=== PATIENT | female | born 1965 | race Caucasian/White ===

== ENCOUNTER → 2021-10-18 | Outpatient (CLI) | payer MEDICARE, OTHER ==
[~2021-10-18] MED LIST: ALBUIS IH; AMIT25 PO; CITA20; CYCL10 PO; DIAZ5 PO; HYDCHL25 PO; LISHYD1012 PO; LISINOPRIL-? DOSE; METPRE4DP PO; NAPR500 PO; Naprosyn500 MG PO; Norco 5-325 Ta1 EACH PO; Zofran Odt4 MG SL
== END ==
LOC: LAB SHORT 17:05
DX: N39.0 Urinary tract infection, site not specified (principal)
CPT/HCPCS: 87086

== ENCOUNTER 2022-08-05 17:58 | Emergency (ER) | payer MEDICARE, OTHER ==
[~2022-08-05] VITALS: Ht 160 cm; Wt 89.8 kg
[2022-08-05] MEDS ORDERED: PRED20 PO (19:57)
== END 2022-08-05 20:08 | disposition home or self-care (01) ==
LOC: ER 17:58
DX: L25.9 Unspecified contact dermatitis, unspecified cause (principal); J45.909 Unspecified asthma, uncomplicated; Z91.02 Food additives allergy status; Z91.018 Allergy to other foods; Z79.899 Other long term (current) drug therapy; Z87.891 Personal history of nicotine dependence
CPT/HCPCS: J7512

== ENCOUNTER → 2022-08-15 | Outpatient (CLI) | payer MEDICARE, OTHER ==
[~2022-08-15] MED LIST changes: +HYDPAM25 PO; -LISHYD1012 PO; +PRED20 PO; +ZESTORETIC 20-1 EACH PO; +ZYRTEC10 M1 PO
[2022-08-19 15:08] LABS: HPV 16 Negative (Negative); HPV 18 Negative (Negative); HPV OTHER HR TYPES Negative (Negative)
== END ==
LOC: RAD SHORT 09:30
PROVIDERS: Family Medicine
DX: Z01.419 Encounter for gynecological examination (general) (routine) without abnormal findings (principal)
CPT/HCPCS: 87624; G0145

== ENCOUNTER 2022-09-14 08:34 | Day surgery (SDC) | payer MEDICARE, OTHER ==
[~2022-09-14] VITALS: Ht 157.5 cm; Wt 91.1 kg
[2022-09-14] MEDS ORDERED: FLUT.05NI (08:58)
[2022-09-14] MEDS ORDERED: ASPI81CH PO (12:07)
[2022-09-14] MEDS ORDERED: PROM25 PO (12:08)
[2022-09-14] MEDS ORDERED: ROXICODONE5 MG PO (12:08)
[2022-09-14] MEDS ORDERED: BACTRIM DS TAB1 EAC6 PO (12:09)
--- NOTE | 2022-09-14 16:22 | NUR ---
SHIFT SUMMARY/NOTE: POD 0 LAP AWILDA PATIENT IS A&OX4. VS ARE WNL AND IS ON RA. PATIENT REPORTS A 6/10 PAIN AT THIS TIME BUT WAS JUST GIVEN 1 NORCO PO WELL IV TORADOL. SHE HAS 3 STERI STRIPS ON HER ABD THAT ARE C/D/I WITH HER BELLY BUTTON LAP SITE WITH GAUZE + TEGADERM. SHE IS TOLERATING SMALL AMOUNTS OF PO INTAKE. SHE IS LAYING IN BED WITH CALL LIGHT IN REACH. FAMILY AT BEDSIDE.
--- NOTE | 2022-09-14 16:29 | NUR ---
SHIFT SUMMARY: POD 0 LEFT TOTAL KNEE PATIENT IS A&OX4. VS ARE WNL AND IS ON RA. PATIENT DENIES PAIN BUT HAS BEEN GIVEN HER SCHEDULED TYLENOL AND TORADOL. HER LEFT KNEE HAS NAKUL WRAP AND IS C/D/I. DENIES NUMBNESS OR TINGLING IN ALL EXTREMITIES. PATIENT CAN MOVE FINGERS AND TOES WHEN ASKED. SHE IS TOLERATING PO INTAKE. CALLS APPROPRIATELY. CALL LIGHT WITHIN REACH. THE PLAN IS TO WORK WITH PT/OT TOMORROW AND TO HAVE PAIN MANAGED.
[2022-09-15 05:11] LABS: BASOPHILS ABSOLUTE AUTO 0.03 K/mm3 (0.00-0.23); BASOPHILS PERCENT AUTO 0 % (0-2); EOSINOPHILS ABSOLUTE AUTO 0.03 K/mm3 (0.00-0.68); EOSINOPHILS PERCENT AUTO 0 % (0-6); Hematocrit 34.9 % (33.0-51.0); IMMATURE GRAN ABSOLUTE AUTO 0.09 K/mm3 (0.00-0.10); IMMATURE GRAN PERCENT AUTO 1 % (0-1); LYMPHOCYTES ABSOLUTE AUTO 2.47 K/mm3 (0.84-5.20); LYMPHOCYTES PERCENT AUTO 14 % (21-46); MONOCYTES PERCENT AUTO 9 % (4-13); Mean Corpuscular HGB 31.1 pg (26.0-34.0); Mean Corpuscular HGB Conc 34.4 g/dL (31.5-36.5); Mean Corpuscular Volume 90 fL (80-100); NEUTROPHILS ABSOLUTE AUTO 14.11 K/mm3 (1.96-9.15); NEUTROPHILS PERCENT AUTO 77 % (41-73); Platelet Count 276 K/mm3 (150-400); RDW Coefficient Variation 13.8 % (11.7-14.2); RDW Standard Deviation 46.3 fL (35.1-46.3); Red Blood Cell Count 3.86 M/mm3 (3.80-5.20); White Blood Cell Count 18.33 K/mm3 (4.00-11.30)
--- NOTE | 2022-09-15 05:33 | NUR ---
DIRECTOR REACTOR PROJECTS SUMMARY PT IS POD 0 FOR L TKA. PT HAS AMBULATED MULTIPLE TIMES TONIGHT WITH A STANDBY ASSIST AND FWW TO THE END OF THE MILLS AND BACK. PAIN HAS BEEN MANAGED WITH SCHEDULED TORADOL. PT DENIES N/T AND IS ABLE TO WIGGLE TOES. TOLERATING PO AND HAS VOIDED SINCE SURGERY. VSS, WILL CONTINUE TO MONITOR.
[2022-09-15 05:51] LABS: Bun/Creatinine Ratio 21.7 (12.0-20.0); Calcium, Blood 9.1 mg/dL (8.5-10.1); Creatinine, Blood 0.78 mg/dL (0.40-1.00); Potassium, Blood 3.5 mmol/L (3.5-5.5)
--- NOTE | 2022-09-15 12:24 | NUR ---
DISCHARGE SUMMARY ASSISTED SURGEON WITH DRESSING CHANGE NEAR START OF SHIFT, BULKY SURGICAL DRESSING REMOVED, SITE CLEANED WITH H2O2 AND NEW AQUACELL DRESSING PLACED. PT HAD COMPRESSIONS STALKINGS AND POLAR PACK IN PLACE, PAIN WAS MINIMAL WITH ORAL PAIN MEDICATIONS PROVIDED WHILE SHE WAS WORKING WITH PHYSICAL THERAPY. PT CLEARED TO GO HOME BY PHYSICAL THERAPY AND DISCHARGE INSTRUCTIONS WERE DISCUSSED WITH HER INCLUDING SURGICAL SITE CARE, PERSONAL HYGIENE AND DRESSING CHANGES, FOLLOW UP APPOINTMENTS, MEDICATION CHANGES, MOBILITY, OUTPATIENT F/U THERAPY, AND CONTACT INFORMATION SHOULD ANY ADDITIONAL QUESTIONS COME UP AFTER DISCHARGE. HER IV WAS INFILTRATED NEAR END OF NOC SHIFT AND WAS ALREADY REMOVED PRIOR TO ASSUMPTION OF CARE BY THIS RN. SHE IS WAITING ON HER RIDE TO GO HOME AND WE WILL CTM HER UNTIL THAT TIME.
--- NOTE | 2022-09-15 14:51 | NUR ---
DISCHARGE VITALS TAKEN AND ARE NORMAL FOR THE PATIENT, MEDICTED PER EMAR PRIOR TO DEPARTURE, ESCORTED OUT VIA WC WITH ALL PERSONAL POSSESSIONS TO HER SONS CARE TO GO HOME.
== END 2022-09-15 14:34 | disposition home or self-care (01) ==
LOC: ORSCMMR 08:34 → ORD 10:00 → ORSCMMR 10:30 → SURS 14:38 → ORSCMMR 09-15 14:34
PROVIDERS: Orthopaedic Surgery
PROC: 0SRD0J9 Replacement of Left Knee Joint with Synthetic Substitute, Cemented, Open Approach (ICD-10-PCS; principal; 2022-09-14 10:30)
DX: M17.12 Unilateral primary osteoarthritis, left knee (principal)
CPT/HCPCS: 36415; 73560-LT; 80048; 83735; 85025; 97110; 97116; 97162; 97530; A9270; C1713; C1776; J0171; J0690; J0735; J1100; J1885; J2250; J2370; J2405; J2704; J2765; J2795; J3010; J7120

== ENCOUNTER 2023-04-07 17:44 | Emergency (ER) | payer MEDICARE, OTHER ==
[~2023-04-07] VITALS: Ht 160 cm; Wt 90.7 kg
[~2023-04-07 17:44] MED LIST changes: +ASPI81CH PO; +BACTRIM DS TAB1 EAC6 PO; +FLUT.05NI; +PROM25 PO; +ROXICODONE5 MG PO
[2023-04-07 18:14] VITALS: BP 157/94
== END 2023-04-07 19:36 | disposition home or self-care (01) ==
LOC: ER 17:44
DX: M79.675 Pain in left toe(s) (principal); Z91.018 Allergy to other foods; Z87.891 Personal history of nicotine dependence
CPT/HCPCS: 73630; 99283-25

== ENCOUNTER → 2025-05-14 | Outpatient (CLI) | payer MEDICARE, OTHER ==
[2025-05-15 14:06] LABS: Stool Occult Bld Immuno 1 Negative (NEGATIVE)
== END | disposition home or self-care (01) ==
LOC: LAB 14:26 → LAB SHORT 14:26
PROVIDERS: Family Medicine
DX: Z12.11 Encounter for screening for malignant neoplasm of colon (principal)
CPT/HCPCS: G0328